=== PATIENT | female | born 1970 | race Caucasian/White ===

== ENCOUNTER → 2017-10-22 10:50 | Outpatient (CLI) | payer BC, SELFPAY ==
[2017-10-22 12:44] LABS: Cholesterol 246 mg/dL (200); Glucose 84 mg/dL (74-106); High Density Lipoprotein 73 mg/dL; Triglycerides 158 mg/dL; Very Low Density Lipoprotein 32 mg/dL (5-40)
== END ==
PROVIDERS: Visit Provider Obstetrics & Gynecology
DX: Z00.00 Encounter for general adult medical examination without abnormal findings (principal)
CPT/HCPCS: 36415; 80061; 82947

== ENCOUNTER → 2018-03-16 09:16 | Outpatient (CLI) | payer BC, SELFPAY ==
--- NOTE | 2018-03-16 09:33 | BI_ITS ---
MAMMOGRAPHY - BILATERAL SCREENING REASON FOR EXAM: Female, 47 years old. Routine annual screening examination. PERTINENT HISTORY: Personal history of breast cancer. Prior left lumpectomy and left stereotactic breast biopsy. Aunt with breast cancer. TECHNIQUE: Digital bilateral breast bright (3D mammographic acquisition) in the CC and MLO projections. 2-D mediolateral oblique (MLO) and craniocaudad (CC) views of both breasts were obtained. CAD: Full Field Digital Mammography with Computer Added Detection was performed. COMPARISON: Comparison is made with prior study dated January 05, 2017 and January 04, 2016. FINDINGS: Breast Composition: The breasts are heterogeneously dense, which may obscure small masses. There are no dominant masses or suspicious calcifications. Stable appearance of the left breast following the lumpectomy. No new mass lesion or cluster microcalcification is seen. No other significant abnormalities are identified. There has been no significant change since the prior study. BI/SCREENING MAMM (CAD), BILAT IMPRESSION: Stable bilateral screening mammogram. Yearly follow-up mammogram recommended. (A) ASSESSMENT CATEGORY: BIRADS Category 2: Benign. A letter regarding these results will be sent to the patient by the facility within 30 days. Approximately 10% of breast cancers are not detected by mammography. A normal mammogram should not delay biopsy of a clinically suspicious abnormality. [id number] Electronically Signed: Angus Villavicencio MD at 9:26 EST , Service support ,
== END ==
PROVIDERS: Referring Provider Obstetrics & Gynecology; Visit Provider Obstetrics & Gynecology
DX: Z12.31 Encounter for screening mammogram for malignant neoplasm of breast (principal)
CPT/HCPCS: 77063; 77067

== ENCOUNTER → 2018-10-30 12:20 | Outpatient (CLI) | payer BC, SELFPAY ==
[2018-10-30 14:51] LABS: Cholesterol 233 mg/dL (200); Glucose 85 mg/dL (74-106); High Density Lipoprotein 69 mg/dL; Triglycerides 110 mg/dL; Very Low Density Lipoprotein 22 mg/dL (5-40)
== END ==
PROVIDERS: Referring Provider Obstetrics & Gynecology; Visit Provider Obstetrics & Gynecology
DX: Z00.00 Encounter for general adult medical examination without abnormal findings (principal)
CPT/HCPCS: 36415; 80061; 82947

== ENCOUNTER → 2019-11-04 10:53 | Outpatient (CLI) | payer BC, SELFPAY ==
[2019-11-04 14:00] LABS: Cholesterol 293 mg/dL (200); Glucose 86 mg/dL (74-106); High Density Lipoprotein 78 mg/dL; Triglycerides 88 mg/dL; Very Low Density Lipoprotein 18 mg/dL (5-40)
== END ==
PROVIDERS: Visit Provider Student in an Organized Health Care Education/Training Program
DX: Z13.220 Encounter for screening for lipoid disorders (principal); Z13.1 Encounter for screening for diabetes mellitus
CPT/HCPCS: 36415; 80061; 82947

== ENCOUNTER → 2019-12-02 | Outpatient (CLI) | payer BC, SELFPAY ==
[2019-12-05 06:18] LABS: HPV APTIMA, High Risk Negative (Negative); HPV Reflexed? NOT INDICATED
== END | disposition home or self-care (01) ==
LOC: LABSPEC 11:36
PROVIDERS: Visit Provider Student in an Organized Health Care Education/Training Program
DX: Z12.4 Encounter for screening for malignant neoplasm of cervix (principal)
CPT/HCPCS: 88175; G0145

== ENCOUNTER → 2019-12-29 11:30 | Outpatient (CLI) | payer BC, SELFPAY ==
--- NOTE | 2019-12-29 11:31 | BI_ITS ---
MAMMOGRAPHY - BILATERAL SCREENING REASON FOR EXAM: Female, 49 years old. Routine annual screening examination. PERTINENT HISTORY: Screening TECHNIQUE: Digital bilateral breast roberto (3D mammographic acquisition) in the CC and MLO projections. 2-D mediolateral oblique (MLO) and craniocaudad (CC) views of both breasts were obtained. CAD: Full Field Digital Mammography with Computer Added Detection was performed. COMPARISON: 03/16/2018 FINDINGS: Breast Composition: Dense There are no dominant masses or suspicious calcifications. No other significant abnormalities are identified. BI/SCREEN MAMM (CAD) W/ROBERTO BILAT IMPRESSION: Stable bilateral screening mammogram. Yearly follow-up mammogram recommended. (A) ASSESSMENT CATEGORY: BIRADS Category 1: Negative. A letter regarding these results will be sent to the patient by the facility within 30 days. Approximately 10% of breast cancers are not detected by mammography. A normal mammogram should not delay biopsy of a clinically suspicious abnormality. [id number] Electronically Signed: Mateusz Atkins, at 7:52 EST Tel , Service support ,
== END ==
PROVIDERS: Referring Provider Student in an Organized Health Care Education/Training Program; Visit Provider Student in an Organized Health Care Education/Training Program
DX: Z12.31 Encounter for screening mammogram for malignant neoplasm of breast (principal)
CPT/HCPCS: 77063; 77067

== ENCOUNTER → 2022-06-28 | Outpatient (CLI) | payer SELFPAY, OTHER ==
--- NOTE | 2022-06-28 08:44 | US_ITS ---
STUDY: DIAGNOSTIC ULTRASOUND BREAST -RIGHT REASON FOR EXAM: 51-year-old female with right axillary swelling. TECHNIQUE: Real-time grayscale and color sonographic images of the right axilla was performed. # OF IMAGES: 33 COMPARISON: Same day diagnostic mammogram. FINDINGS: The right axilla was assessed in the clinical area of concern. No abnormal masses, fluid collections, or lymphadenopathy. Please note that an additional finding was seen on the diagnostic mammogram in the left breast but was not assessed on this study. The patient will be recalled for left breast ultrasound which will be dictated separately. US/Breast Limited Unilateral IMPRESSION: No abnormal masses, fluid collections, or adenopathy in the right axilla in the clinical area of concern. Please note that an additional finding was seen on the diagnostic mammogram in the left breast but was not assessed on this study. The patient will be recalled for left breast ultrasound which will be dictated separately. ASSESSMENT CATEGORY: BIRADS Category 1: Negative. A letter regarding these results will be sent to the patient by the facility within 30 days. RECOMMENDATION: Follow-up ultrasound of the left breast will be performed and dictated separately. No further assessment recommended within the right breast. If clinical concerns for new or enlarging palpable mass, follow-up with ultrasound and mammogram is recommended if clinically warranted. Electronically Signed: Harjinder Gonzales MD at 12:30 EDT ,
--- NOTE | 2022-06-28 08:44 | BI_ITS ---
MAMMOGRAPHY - BILATERAL DIAGNOSTIC REASON FOR EXAM: Female, 51 years old. Right axillary pain PERTINENT HISTORY: Personal history of atypical hyperplasia. Aunt with breast cancer. TECHNIQUE: Digital bilateral breast bright (3D mammographic acquisition) in the CC and MLO projections. 2-D mediolateral oblique (MLO) and craniocaudad (CC) views of both breasts were obtained. CAD: Full Field Digital Mammography with Computer Added Detection was performed. COMPARISON: Mammogram from December 29, 2019, March 16, 2018. FINDINGS: Breast Composition: The breasts are heterogeneously dense, which may obscure small masses. There is a focal asymmetry in the left inner retroareolar breast, anterior depth, approximately 4.3 cm posterior to the nipple and seen best on cc views and 3-D MLO views. Further assessment with ultrasound is recommended. Benign-appearing calcification in the right breast. No suspicious masses in the right breast. BI/DIAG MAMM W/CAD, BILAT IMPRESSION: Further ultrasonographic evaluation recommended, as described above. (I) Recall Side: Left Breast ASSESSMENT CATEGORY: BIRADS Category 0: Incomplete. Need additional imaging evaluation. A letter regarding these results will be sent to the patient by the facility within 30 days. Approximately 10% of breast cancers are not detected by mammography. A normal mammogram should not delay biopsy of a clinically suspicious abnormality. Electronically Signed: Harjinder Gonzales MD at 12:24 EDT ,
== END | disposition home or self-care (01) ==
LOC: OPBI 08:42
PROVIDERS: Referring Provider Student in an Organized Health Care Education/Training Program; Visit Provider Student in an Organized Health Care Education/Training Program
DX: N64.4 Mastodynia (principal)
CPT/HCPCS: 76642; 77062; 77066; G0279

== ENCOUNTER → 2022-07-05 | Outpatient (CLI) | payer SELFPAY, OTHER ==
--- NOTE | 2022-07-05 10:46 | US_ITS ---
STUDY: ULTRASOUND BREAST - LEFT REASON FOR EXAM: Female, 51 years old. Abnormal screening mammogram. TECHNIQUE: Axial and longitudinal images of the LEFT breast were performed with a high resolution ultrasound transducer. # OF IMAGES: 12 COMPARISON: Comparison is made with prior mammogram dated 09/28/2022. FINDINGS: LEFT Breast: The inferior inner quadrant of the left breast was examined with ultrasound. There is a 7 mm x 8 mm x 5 mm cyst at the 9:00 position of the breast at 3 cm from nipple. US/Breast Limited Unilateral IMPRESSION: 7 mm x 8 mm x 5 mm cyst at the 9:00 position of the breast 3 cm from the nipple. ASSESSMENT CATEGORY: BIRADS Category 2: Benign. A letter regarding these results will be sent to the patient by the facility within 30 days. Electronically Signed: Angus Villavicencio MD at 15:27 EDT ,
== END | disposition home or self-care (01) ==
LOC: OPUS 10:44
PROVIDERS: Referring Provider Student in an Organized Health Care Education/Training Program; Visit Provider Student in an Organized Health Care Education/Training Program
DX: R92.8 Other abnormal and inconclusive findings on diagnostic imaging of breast (principal)
CPT/HCPCS: 76642